=== PATIENT | male | born 1955 | race Caucasian/White ===

== ENCOUNTER 2016-08-19 16:57 | Emergency (ER) | payer BC, OTHER ==
[2016-08-19 17:51] VITALS: BP 164/104
[2016-08-19] MEDS ORDERED: Lidocaine 1% MPF* 2 ML VIAL ONE ×2 (18:14→18:23)
--- NOTE | 2016-08-19 18:18 | UC ---
Laceration HPI - HPI Summary HPI Summary: 61 year old male with complaints of laceration to left thumb. Pt hit his left thumb on table saw approximately 1 hours ago, Pt is right handed Last tetanus more than 5 years ago Bleeding is controlled upon arrival - History Of Current Complaint Chief Complaint: UCLaceration Stated Complaint: THUMB LACERATION Time Seen by Provider: 08/19/16 18:06 Hx Obtained From: Patient Laceration Location: Finger - left thumb volar pad Mechanism Of Injury: Sharp Trauma Onset/Duration: Sudden Onset, Lasting Hours - 1, Still Present Severity: Moderate Pain Scale Used: 0-10 Numeric - 4-5. States pain has been coming down from an 8 Aggravating Factors: Other: - touch Related History: Dominant Hand Right - Allergies/Home Medications Allergies/Adverse Reactions: Allergies Allergy/AdvReac Type Severity Reaction Status Date / Time No Known Allergies Allergy Verified 08/19/16 17:51 Home Medications: Home Medications Atorvastatin* [Lipitor*] 20 mg PO DAILY 08/19/16 [History Confirmed 08/19/16] Lisinopril/HCTZ 20/25(NF) [Zestoretic 20/25(NF)] 1 tab PO DAILY 08/19/16 [ History Confirmed 08/19/16] PMH/Surg Hx/FS Hx/Imm Hx Previously Healthy: Yes Endocrine History Of: Denies: Diabetes, Thyroid Disease Cardiovascular History Of: Reports: Hypertension Denies: Cardiac Disorders Respiratory History Of: Denies: COPD, Asthma GI/ History Of: Denies: Ulcer - Surgical History Surgical History: Yes Surgery Procedure, Year, and Place: [facility]. colonoscopy 2011 - Family History Known Family History: Negative: Hypertension, Diabetes - Social History Occupation: Retired Lives: With Family - Alcohol Use: Weekly Substance Use Type: None Smoking Status (MU): Never Smoked Tobacco - Immunization History Most Recent Tetanus Shot: more than 5 years ago Review of Systems Constitutional: Negative Skin: Other - laceration of left thumb Eyes: Negative ENT: Negative Respiratory: Negative Cardiovascular: Negative Gastrointestinal: Negative Genitourinary: Negative Motor: Negative Neurovascular: Negative Musculoskeletal: Negative Neurological: Negative Psychological: Negative All Other Systems Reviewed And Are Negative: Yes Physical Exam Triage Information Reviewed: Yes Appearance: Well-Appearing, Well-Nourished, Pain Distress - holding pressure to left thumb with his right hand Vital Signs: Initial Vital Signs Temp 98.8 F 08/19/16 17:45 Pulse 77 08/19/16 17:45 Resp 18 08/19/16 17:45 BP 164/104 08/19/16 17:45 Pulse Ox 100 08/19/16 17:45 Vital Signs Reviewed: Yes Eyes: Positive: Conjunctiva Clear. Negative: Discharge ENT: Positive: Hearing grossly normal. Negative: Nasal congestion Neck: Positive: Supple, Nontender Respiratory: Positive: Lungs clear, Normal breath sounds. 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 able to resist pressure to fully extend and flex the thumb, No Edema - Good sensation to light touch over left thumb. Good cap refill, less than 2 seconds at left thumb Neurological: Positive: Alert, Muscle Tone Normal Psychological: Positive: Age Appropriate Behavior - pleasant and cooperative Skin: Positive: Other - Lacertation of left thumb. No gross contamination noted with irrigation.. Negative: rashes Laceration Repair - Laceration Repair 1 Description: Irregular Laceration Size After Repair: Length (cm) - 2.5 with areas of macerated skin. Very deep at mid laceation. No bone fragments noted. No obvious deformity of bone. No obvious tendon involved. No gross contamination noted Modified For Repair: Yes - Unable to suture in macerated areas Anesthesia Used: 1.0% Lido Cleansing Completed Via Routine Prep: Yes Closure Material: Sutures - 5.0 nylon Closure Method: Single Layer Suture Of: Skin Suture Type: Nylon - 4 simple interrupted sutures Laceration Course/Dx - Course/Dx Course Of Treatment: Tetanus Immunization updated. Suture repair of laceration. Xray of left thumb - no fracture - Differential Dx - Laceration/Wound Differental Diagnoses: Avulsion, Fracture, Laceration Provider Diagnoses: 2.5 cm laceration of left volar thumb with repair Discharge - Discharge Plan Condition: Stable Disposition: HOME Prescriptions: Cephalexin CAP* [Keflex CAP*] 500 mg PO TID #21 cap Patient Education Materials: Diphtheria/Pertussis/Tetanus Vaccine (DTwP) (By injection), Care For Your Stitches (ED), Laceration (ED) Referrals: Naldo Villegas MD [Primary Care Provider] - Additional Instructions: Keep wound clean and dry for 2 days The stitches must be removed in 7 - 10 days
--- NOTE | 2016-08-19 19:19 | RAD ---
INDICATION: The thumb laceration COMPARISON: None TECHNIQUE: AP, lateral, and oblique views were obtained. FINDINGS: There are no acute bony findings. There is mild underlying osteoarthritis. There is a soft tissue injury about the volar aspect of the thumb at the level of the distal phalanx. There is no foreign body. IMPRESSION: SOFT TISSUE LACERATION. NO FRACTURE OR FOREIGN BODY.
[2016-08-19] MEDS ORDERED: Tetan/Diph/Pertus SYR(Tdap)* 0.5 ML SYR(BOOSTRIX) use SYR IM ONE (19:30)
== END 2016-08-19 19:53 | disposition home or self-care (01) ==
LOC: UCEAST 16:57
DX: S61.012A Laceration without foreign body of left thumb without damage to nail, initial encounter (principal); W31.2XXA Contact with powered woodworking and forming machines, initial encounter; Y93.89 Activity, other specified; Y92.9 Unspecified place or not applicable; Y99.9 Unspecified external cause status; I10 Essential (primary) hypertension; Z23 Encounter for immunization
CPT/HCPCS: 12001; 90471; 90715; 99212; G0463